=== PATIENT | female | born 1990 | race African-American/Black ===

== ENCOUNTER 2018-09-16 12:41 | Outpatient (CLI) | payer OTHER ==
[~2018-09-16 12:41] MED LIST: NORE-93 PO
== END 2018-09-16 23:59 | disposition home or self-care (01) ==
LOC: LAB 12:41
PROVIDERS: ATTEND Nurse Practitioner Family
DX: Z01.84 Encounter for antibody response examination (principal); Z11.1 Encounter for screening for respiratory tuberculosis
CPT/HCPCS: 36415; 86480; 86787